=== PATIENT | male | born 1965 | race Caucasian/White ===

== ENCOUNTER 2019-07-04 22:46 | Emergency (ER) | payer OTHER ==
[2019-07-04] MEDS ORDERED: Ondansetron INJ* 2 MG/ML VIAL IV ONE (22:56)
[2019-07-04] MEDS ORDERED: NS 0.9% 1000 ML** 1,000 ML IV ONE (22:56)
[2019-07-04] MEDS ORDERED: Pantoprazole IV* 40 MG IV ONE (23:07)
--- NOTE | 2019-07-04 23:19 | ED ---
Head Injury - HPI Summary HPI Summary: This pt is a 53 Y/O M presenting to [facility] with a CC of a head injury that was sustained about an hour ago when he fell forward after drinking and smoking. His friend state that he fell down and hit his head against concrete tariq and loss consciousness. He has been vomiting and nauseas with heavy breathing. His friend states that he has no other symptoms. He states that his mouth is dry. The pt denies any fevers, chills, abdominal pains, sore throats, and CP. He has no aggravating or alleviating factors. - History Of Current Complaint Chief Complaint: EDHeadInjury Stated Complaint: CONCUSSION PER FALL PER FRIEND Time Seen by Provider: 07/04/19 22:56 Hx Obtained From: Patient Mechanism Of Injury: Blunt Trauma, Fall From A Standing Position Onset/Duration: Started Hours Ago - 1 Onset of Pain: Hours - 1 Severity Currently: Moderate Severity Initially: Moderate Pain Intensity: 5 Pain Scale Used: 0-10 Numeric Location of Head Injury: Parietal Aggravating Factor(s): Other: - hitting the ground Alleviating Factor(s): Other: - nothing Associated Signs And Symptoms: Negative - fevers, chills, abdominal pains, sore throats, and CP, LOC (Time In Secs./Mins/Hrs) - friend states that he lost conciousness when he hit the ground, Nausea, Vomiting - Allergies/Home Medications Allergies/Adverse Reactions: Allergies Allergy/AdvReac Type Severity Reaction Status Date / Time No Known Allergies Allergy Verified 07/04/19 23:09 PMH/Surg Hx/FS Hx/Imm Hx Previously Healthy: Yes Endocrine/Hematology History: Denies: Hx Diabetes Cardiovascular History: Denies: Hx Hypertension Respiratory History: Denies: Hx Asthma Infectious Disease History: No Infectious Disease History: Denies: Traveled Outside the [place] in Last 30 Days Review of Systems Negative: Fever, Chills Negative: Sore Throat Negative: Chest Pain Positive: Vomiting, Nausea. Negative: Abdominal Pain Musculoskeletal: Other - Head pain Neurological: Other - Loss of conciousness, short duration All Other Systems Reviewed And Are Negative: Yes Physical Exam - Summary Physical Exam Summary: General: Well-developed, Well-nourished male No acute distress. Eyes are closed , HEENT: Normocephalic, Atraumatic. L parietal has a 2cm superficial abrasion Eyes: Conjuctiva normal, PERRL. Ears: TMs within normal limits. Nares: (-) discharge, (-) erythema. Oropharynx: Clear, mucous membranes moist, (-) exudates. Neck: Soft, FROM, (-) lymphadenopathy, (-) thyromegaly, (-) JVD. Cardiovascular: Normal sinus rhythm, (-) murmur. Lungs: Clear to auscultation bilaterally (-) wheezes, (-) rales, (-) rhonchi. Tachypnic upon entering the room Abdomen: Soft, non-tender, non-distended, (-) organomegaly, normal bowel sounds. Back: (-) CVA tenderness Extremities: No edema. Skin: Warm, dry, (-) rash. L parietal has a 2cm superficial abrasion Neuro: Alert and oriented x3, no focal deficits. Psychiatric: Mood normal, affect normal. Triage Information Reviewed: Yes Vital Signs On Initial Exam: Initial Vitals Temp Pulse Resp BP Pulse Ox 98.0 F 101 22 120/73 98 07/04/19 22:47 07/04/19 22:47 07/04/19 22:47 07/04/19 22:47 07/04/19 22:47 Vital Signs Reviewed: Yes Procedures - Sedation Patient Received Moderate/Deep Sedation with Procedure: No Diagnostics - Vital Signs Vital Signs Temp Pulse Resp BP Pulse Ox 07/04/19 22:47 98.0 F 101 22 120/73 98 - Laboratory Result Diagrams: 07/05/19 00:08 07/05/19 00:08 Lab Statement: Any lab studies that have been ordered have been reviewed, and results considered in the medical decision making process. - CT Brain CT CT Interpretation Completed By: Radiologist Summary of CT Findings: No acute intracranial processes. ED physician has reviewed this report. Cervical Spine CT CT Interpretation Completed By: Radiologist Summary of CT Findings: No acute processes noted. ED physician has reviewed this report. - EKG 2258 Cardiac Rate: NL - 93 BPM EKG Rhythm: Sinus Rhythm ST Segment: Normal Ectopy: None Summary of EKG Findings: NSR at 93 BPM, P waves, QRS complex, and T waves are within normal limits, T waves and intervals are normal, no ischemic changes. This is a normal EKG. Interpreted by Dr. Vallecillo at 2301 07/04/19. Re-Evaluation - Re-Evaluation First Eval Re-Evaluation Time: 01:46 Change: Improved Comment: Pt states that he is doing better. Will receive a 2nd lactate. If within normal limits he will be discharged home. Head Injury Course/Dx Course Of Treatment: 53-year-old male with head trauma tonight. Patient describes head pain upon arrival. Somewhat tachypneic. Had nausea and vomiting en route. Patient is amnestic to the event. Patient was found to have significant blood alcohol. Symptoms improved after IV fluids. CT head negative. Patient discharged home with concussion precautions. Follow-up with PCP. Follow-up sooner for any worsening symptoms. - Diagnoses Provider Diagnoses: Syncope, Head trauma, Alcohol intoxication Discharge ED - Sign-Out/Discharge Documenting (check all that apply): Patient Departure - discharge - Discharge Plan Condition: Stable Disposition: HOME Patient Education Materials: Syncope (ED), Head Injury (ED), Alcohol Intoxication (ED) Referrals: [facility] [Outside] - 2 Days Additional Instructions: PLEASE FOLLOW UP WITH YOUR PRIMARY CARE PHYSICIAN OR THE [facility] IN 1-3 DAYS AND RETURN TO THE EMERGENCY DEPARTMENT OR ANY NEW OR WORSENING SYMPTOMS. - Billing Disposition and Condition Condition: STABLE Disposition: Home - Attestation Statements Document Initiated by Scribe: Yes Documenting Scribe: Arjun Villafana Provider For Whom Pedro is Documenting (Include Credential): Rochelle Vallecillo MD Scribe Attestation: Arjun Davies, scribed for Rochelle Vallecillo MD on 07/05/19 at 0525. Scribe Documentation Reviewed: Yes Provider Attestation: The documentation as recorded by the Arjun reed accurately reflects the service I personally performed and the decisions made by me, Rochelle Vallecillo MD Status of Scribe Document: Viewed
[2019-07-05 00:13] LABS: ABS Eosinophils 0.1 10^3/ul (0-0.6); ABS Lymphocytes 1.1 10^3/ul (1.0-4.8); ABS Monocytes 0.6 10^3/ul (0-0.8); ABS Neutrophils 5.2 10^3/ul (1.5-7.7); Eosinophil % 1.4 %; Hematocrit 44 % (42-52); Hemoglobin 14.9 g/dL (14.0-18.0); Mean Corpuscular HGB Conc 34 g/dL (31-36); Mean Corpuscular Hemoglobin 32 pg (27-31); Mean Corpuscular Volume 95 fL (80-94); Mean Platelet Volume 6.5 fL (7.4-10.4); Platelet Count 226 10^3/uL (150-450); Red Blood Count 4.61 10^6 /uL (4.18-5.48); Red Cell Distribution Width 13 % (10-15)
[2019-07-05 00:21] LABS: INR 1.08 (0.82-1.09)
[2019-07-05 00:30] LABS: Albumin/Globulin Ratio 1.5 (1-3); BUN/Creatinine Ratio 8.6 (8-20); Calcium 8.6 mg/dL (8.6-10.3); EGFR African American 54.6 (>60); EGFR Non-African American 45.1 (>60); Globulin 2.7 g/dL (2-4); Potassium 4.2 mmol/L (3.5-5.0); Total Bilirubin 0.6 mg/dL (0.2-1.0); Total Protein 6.7 g/dL (6.4-8.9)
[2019-07-05] MEDS ORDERED: NS 0.9% 1000 ML** 1,000 ML IV ONE (00:49)
[2019-07-05 01:30] LABS: Urine Appearance Clear; Urine Bilirubin Negative (Negative); Urine Blood Negative (Negative); Urine Color Yellow; Urine Glucose Negative (Negative); Urine Ketones Trace (Negative); Urine Nitrite Negative (Negative); Urine Protein Negative (Negative); Urine Urobilinogen Negative (Negative)
[2019-07-05 01:49] LABS: Urine Benzodiazepine Screen None Detected (None Detect); Urine Opiates Screen None Detected (None Detect)
== END 2019-07-05 02:45 | disposition home or self-care (01) ==
LOC: ED 22:46
DX: R55 Syncope and collapse (principal); S06.9X9A Unspecified intracranial injury with loss of consciousness of unspecified duration, initial encounter; S00.01XA Abrasion of scalp, initial encounter; W19.XXXA Unspecified fall, initial encounter; Y92.9 Unspecified place or not applicable; F10.129 Alcohol abuse with intoxication, unspecified; R11.2 Nausea with vomiting, unspecified
CPT/HCPCS: 36415; 70450; 72125; 80053; 80307; 80320; 81003; 83605; 84484; 85025; 85610; 93005; 96361; 96374; 96375; 99283; G0480; J2405